=== PATIENT | female | born 1995 | race Two or more races ===

== ENCOUNTER 2019-01-03 03:10 | Emergency (ER) | payer OTHER ==
[~2019-01-03] VITALS: Ht 149.9 cm; Wt 54.4 kg
[~2019-01-03 03:10] MED LIST: MOTRIN800 MG PO; MUCINEX1200 MG/BO PO; ZITHROMAX TRI-500 MG PO
[2019-01-03] MEDS ORDERED: OSEL75CA PO (06:42)
[2019-01-03] MEDS ORDERED: ONDANSETRON ODT4 MG SL (06:42)
[2019-01-03] MEDS ORDERED: TESSALON PERLE100 MG PO (06:42)
[2019-01-03] MEDS ORDERED: KETO10TA2 PO (06:42)
[2019-01-03] MEDS ORDERED: MUCINEX DM ER1 EAC1 PO (06:42)
[2019-01-03] MEDS ORDERED: PEPCID AC20 MG PO (06:42)
== END 2019-01-03 06:53 | disposition home or self-care (01) ==
LOC: ER 03:10
DX: J11.1 Influenza due to unidentified influenza virus with other respiratory manifestations (principal); G44.209 Tension-type headache, unspecified, not intractable; R50.9 Fever, unspecified

== ENCOUNTER 2021-11-12 10:28 | Outpatient (CLI) | payer OTHER ==
[~2021-11-12 10:28] MED LIST changes: +KETO10TA2 PO; +MUCINEX DM ER1 EAC1 PO; +ONDANSETRON ODT4 MG SL; +OSEL75CA PO; +PEPCID AC20 MG PO; +TESSALON PERLE100 MG PO
== END 2021-11-12 11:29 | disposition home or self-care (01) ==
LOC: PRENATAL 10:28
PROVIDERS: ATTEND Obstetrics & Gynecology Maternal & Fetal Medicine
DX: O35.0XX0 Maternal care for (suspected) central nervous system malformation in fetus, not applicable or unspecified (principal); O35.3XX0 Maternal care for (suspected) damage to fetus from viral disease in mother, not applicable or unspecified; Z3A.20 20 weeks gestation of pregnancy

== ENCOUNTER 2022-03-22 18:04 | Inpatient (IN) | payer OTHER ==
[~2022-03-22] VITALS: Ht 149.9 cm; Wt 70.3 kg
[~2022-03-22 18:04] MED LIST changes: +PRENATAL + DHA1 EAC1 PO
== END 2022-03-26 12:14 | disposition home or self-care (01) | DRG 807 ==
LOC: LDR 18:04 → OB/GYN 03-24 06:44
PROVIDERS: ADMIT Obstetrics & Gynecology; ATTEND Obstetrics & Gynecology
PROC: 4A1HXCZ Monitoring of Products of Conception, Cardiac Rate, External Approach (ICD-10-PCS; 2022-03-22)
PROC: 3E033VJ Introduction of Other Hormone into Peripheral Vein, Percutaneous Approach (ICD-10-PCS; 2022-03-23)
PROC: 3E0P7VZ Introduction of Hormone into Female Reproductive, Via Natural or Artificial Opening (ICD-10-PCS; 2022-03-23)
PROC: 10E0XZZ Delivery of Products of Conception, External Approach (ICD-10-PCS; principal; 2022-03-24)
PROC: 0KQM0ZZ Repair Perineum Muscle, Open Approach (ICD-10-PCS; 2022-03-24)
DX: O70.1 Second degree perineal laceration during delivery (principal); Z37.0 Single live birth; Z3A.39 39 weeks gestation of pregnancy; Z20.822 Contact with and (suspected) exposure to COVID-19